=== PATIENT | male | born 1945 | race Caucasian/White ===

== ENCOUNTER 2022-01-04 08:56 | Outpatient (CLI) | payer MEDICARE | END 2022-01-04 08:57 | disposition home or self-care (01) | LOC: TBSIIMAG 08:56 | PROVIDERS: ATTEND Neurological Surgery | DX: M47.26 Other spondylosis with radiculopathy, lumbar region (principal); M48.062 Spinal stenosis, lumbar region with neurogenic claudication | CPT/HCPCS: 72148 ==

== ENCOUNTER 2023-10-19 09:24 | Outpatient (CLI) | payer MEDICARE | END 2023-10-19 09:25 | disposition home or self-care (01) | LOC: BICMRI 09:24 | PROVIDERS: ATTEND Orthopaedic Surgery | DX: M24.811 Other specific joint derangements of right shoulder, not elsewhere classified (principal); M75.121 Complete rotator cuff tear or rupture of right shoulder, not specified as traumatic; M19.011 Primary osteoarthritis, right shoulder ==